=== PATIENT | male | born 1960 | race Caucasian/White ===

== ENCOUNTER → 2019-03-30 | Outpatient (CLI) | payer BC ==
--- NOTE | 2019-03-30 12:33 | Diagnostic Imaging Report ---
INDICATION: Left shoulder injury. AP and transscapular views of the left shoulder are obtained. FINDINGS: No fracture or acute bony abnormality is seen. There is some mild degenerative change in the glenohumeral joint with inferior spurring. AC joint appears unremarkable. IMPRESSION: Mild degenerative change of the glenohumeral joint. No acute bony abnormality. Dictated by: Dictated on workstation # [id number]
== END ==
LOC: RAD FS 11:36
PROVIDERS: ATTEND Family Medicine
DX: S49.92XA Unspecified injury of left shoulder and upper arm, initial encounter (principal); M19.012 Primary osteoarthritis, left shoulder
CPT/HCPCS: 73030

== ENCOUNTER → 2019-04-13 | Outpatient (CLI) | payer BC ==
--- NOTE | 2019-04-13 13:58 | Diagnostic Imaging Report ---
EXAMINATION: Magnetic resonance imaging of the left shoulder without contrast. DATE: April 13, 2019. COMPARISON: Left shoulder radiographs March 30, 2019. HISTORY: 58-year-old male, left shoulder pain. Injury in August 2018. TECHNIQUE: Magnetic Resonance Imaging sequences were performed of the shoulder without contrast. FINDINGS: ROTATOR CUFF, LIGAMENTS, TENDONS, AND MUSCLES: There is mild supraspinatus tendinopathy. The infraspinatus, subscapularis, and teres minor tendons are intact. There is normal rotator cuff muscle bulk and signal. LONG HEAD OF BICEPS: The biceps labral attachment and long head of the biceps tendon is intact. The long head of the biceps tendon is normally positioned within the bicipital groove. GLENOHUMERAL JOINT: The humeral head is well positioned relative to the glenoid. The labrum is grossly intact. There is no identified paralabral cyst. The articular cartilage is grossly intact. There is no joint effusion. ACROMIOCLAVICULAR JOINT: The acromioclavicular joint is normally aligned. The coracoclavicular and coracoacromial ligaments are intact. There are no degenerative changes of the acromioclavicular joint. BONE: The bones all have normal configuration. The bone marrow signal is within normal limits. Specifically, negative for fracture, osteomyelitis, osteonecrosis, or marrow replacing process. BURSAE AND SOFT TISSUES: The bursae and soft tissue surrounding the shoulder are unremarkable. IMPRESSION: 1. Mild supraspinatus tendinopathy. Negative for rotator cuff tendon tear. 2. Intact acromioclavicular joint. 3. No discretely identified labral tear. Additional glenohumeral joint assessment is unremarkable. 4. No acute fracture, bone contusion, or evidence of osteonecrosis. Dictated by: Dictated on workstation # [id number]
== END ==
LOC: RAD 12:35
PROVIDERS: ATTEND Orthopaedic Surgery
DX: M75.82 Other shoulder lesions, left shoulder (principal); M25.512 Pain in left shoulder
CPT/HCPCS: 73221

== ENCOUNTER → 2021-09-17 | Outpatient (CLI) | payer SELFPAY ==
--- NOTE | 2021-09-17 13:20 | Diagnostic Imaging Report ---
INDICATION: Coronary disease. Calcium scoring. Please see separate calcium scoring report. FINDINGS: Images are obtained from the daisha to the diaphragm. The images are coned-down with only a portion of the right and left lung visualized. The portions visualized is well aerated. There is a calcified granuloma measuring approximately 7 mm in the left lower lobe. No other nodules are seen. No infiltrates. No mediastinal or hilar adenopathy of pathologic size is demonstrated. No evidence of pericardial effusion. IMPRESSION: Benign granulomatous change left lung base. Dictated by: Dictated on workstation # [id number]
== END ==
LOC: RAD FS 10:14
PROVIDERS: ATTEND Family Medicine
DX: J84.10 Pulmonary fibrosis, unspecified (principal); E78.2 Mixed hyperlipidemia
CPT/HCPCS: 75571

== ENCOUNTER → 2022-01-21 | Outpatient (CLI) | payer BC | LOC: CARDFS 11:37 | PROVIDERS: ATTEND Family Medicine | DX: I10 Essential (primary) hypertension (principal); R06.02 Shortness of breath | CPT/HCPCS: 93306 ==